=== PATIENT | female | born 1990 | race Caucasian/White ===

== ENCOUNTER 2016-12-20 08:24 | Emergency (ER) | payer SELFPAY ==
[2016-12-20] MEDS ORDERED: ACETAMINOPHEN 325 MG TABLET PO ONE (08:47)
[2016-12-20] MEDS ORDERED: KETOROLAC TROMETHAMINE 60 MG/2 ML SDV IM ONE (09:34)
--- NOTE | 2016-12-20 10:12 | ER Document Report ---
ED General - General Chief Complaint: Fever Stated Complaint: FEVER Mode of Arrival: Ambulatory Information source: Patient Notes: 26-year-old female presenting for the duration of body aches fevers cough sinus pressure. Patient denies any shortness of breath or difficulty breathing was sick 2 days prior TRAVEL OUTSIDE OF THE [place] IN LAST 30 DAYS: No - HPI Onset: Last week Onset/Duration: Persistent Quality of pain: Achy Severity: Mild Pain Level: 1 Associated symptoms: Body/muscle aches, Nonproductive cough, Fever Exacerbated by: Denies Relieved by: Denies Similar symptoms previously: No Recently seen / treated by doctor: No - Related Data Allergies/Adverse Reactions: acetaminophen [From Tylenol] Adverse Reaction (Verified 12/20/16 09:13) Home Medications: Current Home Medications No Home Medications 12/20/16 [History] Past Medical History - Social History Smoking Status: Never Smoker Cigarette use (# per day): No Chew tobacco use (# tins/day): No Smoking Education Provided: No Frequency of alcohol use: None Drug Abuse: None Family History: Reviewed & Not Pertinent Patient has suicidal ideation: No Patient has homicidal ideation: No Renal/ Medical History: Denies: Hx Peritoneal Dialysis GI Medical History: Reports: Hx Gastroesophageal Reflux Disease Past Surgical History: Reports: Hx Section - Immunizations Hx Diphtheria, Pertussis, Tetanus Vaccination: Yes Review of Systems - Review of Systems Notes: REVIEW OF SYSTEMS: CONSTITUTIONAL : Admits fevers EENT: Admits her throat CARDIOVASCULAR: Denies chest pain. Denies palpitations or racing or irregular heart beat. Denies ankle edema. RESPIRATORY: Admits cough GASTROINTESTINAL: Denies abdominal pain or distention. Denies nausea, vomiting , or diarrhea. Denies blood in vomitus, stools, or per rectum. Denies black, tarry stools. Denies constipation. GENITOURINARY: Denies difficulty urinating, painful urination, burning, frequency, blood in urine, or discharge. FEMALE GENITOURINARY: Denies vaginal bleeding, heavy or abnormal periods, irregular periods. Denies vaginal discharge or odor. MUSCULOSKELETAL: Denies body ache SKIN: Denies rash, lesions or sores. HEMATOLOGIC : Denies easy bruising or bleeding. LYMPHATIC: Denies swollen, enlarged glands. NEUROLOGICAL: Denies confusion or altered mental status. Denies passing out or loss of consciousness. Denies dizziness or lightheadedness. Denies headache. Denies weakness or paralysis or loss of use of either side. Denies problems with gait or speech. Denies sensory loss, numbness, or tingling. Denies seizures. PSYCHIATRIC: Denies anxiety or stress. Denies depression, suicidal ideation, or homicidal ideation. ALL OTHER SYSTEMS REVIEWED AND NEGATIVE. Dictation was performed using [employer] voice recognition software PHYSICAL EXAMINATION: GENERAL: Well-appearing, well-nourished and in no acute distress. Febrile HEAD: Atraumatic, normocephalic. EYES: Pupils equal round and reactive to light, extraocular movements intact, conjunctiva are normal. ENT: Nares patent, oropharynx clear without exudates. Moist mucous membranes. NECK: Normal range of motion, supple without lymphadenopathy LUNGS: Breath sounds clear to auscultation bilaterally and equal. No wheezes rales or rhonchi. HEART: Tachycardic ABDOMEN: Soft, nontender, nondistended abdomen. No guarding, no rebound. No masses appreciated. Female : deferred Musculoskeletal: Normal range of motion, no pitting or edema. No cyanosis. NEUROLOGICAL: Cranial nerves grossly intact. Normal speech, normal gait. Normal sensory, motor exams PSYCH: Normal mood, normal affect. SKIN: Warm, Dry, normal turgor, no rashes or lesions noted. Physical Exam - Vital signs Vitals: Temp Pulse Resp BP Pulse Ox 101.3 F H 132 H 18 109/67 96 12/20/16 08:32 12/20/16 08:32 12/20/16 08:32 12/20/16 08:32 12/20/16 08:32 Course - Re-evaluation Re-evalutation: 12/20/16 10:33 Patient has had the flu for 4 days, unfortunately she is out of the timeframe for the use of Tamiflu, I did offer this medication but the patient defers. I did instruct him very close follow-up for herself as well as her 3 children After performing a Medical Screening Examination, I estimate there is LOW risk for ACUTE CORONARY SYNDROME, RESPIRATORY FAILURE, SEPSIS OR MENINGITIS, thus I consider the discharge disposition reasonable. The patient and I have discussed the diagnosis and risks, and we agree with discharging home with close follow- up. We also discussed returning to the Emergency Department immediately if new or worsening symptoms occur. We have discussed the symptoms which are most concerning (e.g., changing or worsening pain, trouble swallowing or breathing, neck stiffness, fever) that necessitate immediate return. - Vital Signs Vital signs: Temp Pulse Resp BP Pulse Ox 98.4 F 126 H 16 106/66 96 12/20/16 09:34 12/20/16 09:34 12/20/16 09:34 12/20/16 09:34 12/20/16 09:34 - Diagnostic Test Radiology reviewed: Image reviewed, Reports reviewed Discharge - Discharge Clinical Impression: Influenza A, Tachycardia Fever Qualifiers: Fever type: unspecified Qualified Code(s): R50.9 - Fever, unspecified Condition: Stable Disposition: HOME, SELF-CARE Instructions: Influenza, Child ([facility]) Additional Instructions: Please follow up with your pcp in 1-2 days or return immediately if there are any other concerns
[2016-12-20 10:36] VITALS: BP 103/60
== END 2016-12-20 10:39 | disposition home or self-care (01) ==
LOC: ER 08:24
DX: J11.1 Influenza due to unidentified influenza virus with other respiratory manifestations (principal); R05 Cough; R50.9 Fever, unspecified; J34.89 Other specified disorders of nose and nasal sinuses; M79.1 Myalgia; R00.0 Tachycardia, unspecified
CPT/HCPCS: 99283; 96372; 87070; 87880; 87804; 71020; J1885

== ENCOUNTER 2017-03-01 22:13 | Emergency (ER) | payer OTHER, MEDICAID | END 2017-03-01 22:45 | disposition left against medical advice (07) | LOC: ER 22:13 | DX: Z53.21 Procedure and treatment not carried out due to patient leaving prior to being seen by health care provider (principal) ==

== ENCOUNTER 2017-03-02 07:57 | Emergency (ER) | payer MEDICAID, OTHER ==
[2017-03-02] MEDS ORDERED: LIDOCAINE 2% VISCOUS SOLN 20 ML UDCUP PO ONE (09:28)
[2017-03-02] MEDS ORDERED: METOCLOPRAMIDE HCL ORAL SOLN 10 MG/10 ML UDCUP PO ONE (09:28)
[2017-03-02] MEDS ORDERED: MAG HYDROX/AL HYDROX/SIMETH SUSP 30 ML UDCUP PO ONE (09:28)
[2017-03-02 10:04] LABS: ABSOLUTE LYMPHOCYTES (AUTO) 2.3 10^3/uL (0.5-4.7); ABSOLUTE MONOCYTES (AUTO) 0.7 10^3/uL (0.1-1.4); ABSOLUTE NEUT (AUTO) 5.6 10^3/uL (1.7-8.2); BASOPHILS % (AUTO) 0.4 % (0-2); EOSINOPHILS % (AUTO) 0.3 % (0-6); HEMATOCRIT 38.8 % (36.0-47.0); HEMOGLOBIN 13.2 g/dL (12.0-15.5); HGB HCT DIFFERENCE 0.8; LYMPHOCYTES % (AUTO) 26.7 % (13-45); MEAN CORPUSCULAR HEMOGLOBIN 25.7 pg (27.0-33.4); MEAN CORPUSCULAR VOLUME 76 fl (80-97); MONOCYTES % (AUTO) 7.9 % (3-13); RED BLOOD COUNT 5.13 10^6/uL (3.72-5.28); RED CELL DISTRIBUTION WIDTH 15.4 % (11.5-14.0); SEGMENTED NEUTROPHILS % (AUTO) 64.7 % (42-78); WHITE BLOOD COUNT 8.7 10^3/uL (4.0-10.5)
--- NOTE | 2017-03-02 10:24 | ER Document Report ---
ED General - General Chief Complaint: Nausea/Vomiting/Diarrhea Stated Complaint: VOMITING Mode of Arrival: Ambulatory Information source: Patient Notes: 26-year-old female presents with complaints of epigastric abdominal pain. Patient notes has been ongoing now for a few days notes is intermittently sharp associated with dull sensation otherwise. Patient denies any fevers or chills admits to nausea that these are mild and vomiting Patient had similar episode in the past which was secondary to gastric reflux TRAVEL OUTSIDE OF THE [place] IN LAST 30 DAYS: No - HPI Onset: Last week Onset/Duration: Intermittent, Persistent Quality of pain: Achy, Burning, Sharp Severity: Mild Pain Level: 1 Associated symptoms: Nausea, Vomiting Exacerbated by: Denies Relieved by: Denies Similar symptoms previously: Yes Recently seen / treated by doctor: No - Related Data Allergies/Adverse Reactions: No Known Allergies Allergy (Unverified 03/02/17 08:15) Past Medical History - Social History Smoking Status: Never Smoker Cigarette use (# per day): No Chew tobacco use (# tins/day): No Smoking Education Provided: No Family History: Reviewed & Not Pertinent Patient has suicidal ideation: No Patient has homicidal ideation: No Renal/ Medical History: Denies: Hx Peritoneal Dialysis GI Medical History: Reports: Hx Gastroesophageal Reflux Disease Past Surgical History: Reports: Hx Section - Immunizations Hx Diphtheria, Pertussis, Tetanus Vaccination: Yes Review of Systems - Review of Systems Notes: REVIEW OF SYSTEMS: CONSTITUTIONAL : Denies fever, chills, or sweats. Denies recent illness. EENT: Denies eye, ear, throat, or mouth pain or symptoms. Denies nasal or sinus congestion or discharge. Denies throat, tongue, or mouth swelling or difficulty swallowing. CARDIOVASCULAR: Denies chest pain. Denies palpitations or racing or irregular heart beat. Denies ankle edema. RESPIRATORY: Denies cough, cold, or chest congestion. Denies shortness of breath, difficulty breathing, or wheezing. GASTROINTESTINAL: Admits to abdominal pain GENITOURINARY: Denies difficulty urinating, painful urination, burning, frequency, blood in urine, or discharge. FEMALE GENITOURINARY: Denies vaginal bleeding, heavy or abnormal periods, irregular periods. Denies vaginal discharge or odor. MUSCULOSKELETAL: Denies back or neck pain or stiffness. Denies joint pain or swelling. SKIN: Denies rash, lesions or sores. HEMATOLOGIC : Denies easy bruising or bleeding. LYMPHATIC: Denies swollen, enlarged glands. NEUROLOGICAL: Denies confusion or altered mental status. Denies passing out or loss of consciousness. Denies dizziness or lightheadedness. Denies headache. Denies weakness or paralysis or loss of use of either side. Denies problems with gait or speech. Denies sensory loss, numbness, or tingling. Denies seizures. PSYCHIATRIC: Denies anxiety or stress. Denies depression, suicidal ideation, or homicidal ideation. ALL OTHER SYSTEMS REVIEWED AND NEGATIVE. Dictation was performed using [employer] recognition software PHYSICAL EXAMINATION: GENERAL: Well-appearing, well-nourished and in no acute distress. HEAD: Atraumatic, normocephalic. EYES: Pupils equal round and reactive to light, extraocular movements intact, conjunctiva are normal. ENT: Nares patent, oropharynx clear without exudates. Moist mucous membranes. NECK: Normal range of motion, supple without lymphadenopathy LUNGS: Breath sounds clear to auscultation bilaterally and equal. No wheezes rales or rhonchi. HEART: Regular rate and rhythm without murmurs ABDOMEN: Soft, mild epigastric tenderness no rebound or guarding Female : deferred Musculoskeletal: Normal range of motion, no pitting or edema. No cyanosis. NEUROLOGICAL: Cranial nerves grossly intact. Normal speech, normal gait. Normal sensory, motor exams PSYCH: Normal mood, normal affect. SKIN: Warm, Dry, normal turgor, no rashes or lesions noted. Physical Exam - Vital signs Vitals: Temp Pulse Resp BP Pulse Ox 98.3 F 109 H 20 127/97 H 97 03/02/17 08:15 03/02/17 08:15 03/02/17 08:15 03/02/17 08:15 03/02/17 08:15 Course - Re-evaluation Re-evalutation: 03/02/17 10:10 Patient has probable gastric reflux, and is otherwise stable 03/02/17 12:41 Patient has significant relief with the GI cocktail, I will discharge home with Pepcid otherwise stable After performing a Medical Screening Examination, I estimate there is LOW risk for ACUTE APPENDICITIS, BOWEL OBSTRUCTION, ACUTE CHOLECYSTITIS, PERFORATED DIVERTICULITIS, INCARCERATED HERNIA, PANCREATITIS, PELVIC INFLAMMATORY DISEASE, PERFORATED ULCER, ECTOPIC , or TUBO-OVARIAN ABSCESS, thus I consider the discharge disposition reasonable. Also, there is no evidence or peritonitis , sepsis, or toxicity. The patient and I have discussed the diagnosis and risks , and we agree with discharging home with close follow-up with the understanding that symptoms and presentations can change. We also discussed returning to the Emergency Department immediately if new or worsening symptoms occur. We have discussed the symptoms which are most concerning (e.g., bloody stool, fever, changing or worsening pain, vomiting) that necessitate immediate return. - Vital Signs Vital signs: Temp Pulse Resp BP Pulse Ox 98.3 F 114 H 20 127/87 H 96 03/02/17 08:15 03/02/17 08:15 03/02/17 08:15 03/02/17 08:15 03/02/17 08:15 - Laboratory Result Diagrams: 03/02/17 09:50 03/02/17 10:50 Laboratory results interpreted by me: 03/02/17 03/02/17 09:50 11:45 MCV 76 L MCH 25.7 L RDW 15.4 H Urine Ketones TRACE H Discharge - Discharge Clinical Impression: GERD (gastroesophageal reflux disease) Qualifiers: Esophagitis presence: with esophagitis Qualified Code(s): K21.0 - Gastro- esophageal reflux disease with esophagitis Abdominal pain Qualifiers: Abdominal location: epigastric Qualified Code(s): R10.13 - Epigastric pain Condition: Stable Disposition: HOME, SELF-CARE Instructions: Abdominal Pain ([facility]) Prescriptions: Famotidine [Pepcid 20 mg Tablet] 20 mg PO DAILY #30 tablet Referrals: MASSIEL HASSAN MD [ACTIVE STAFF] - Follow up tomorrow
[2017-03-02 11:13] LABS: ALANINE AMINOTRANSFERASE 37 U/L (9-52); ALBUMIN 4.3 g/dL (3.5-5.0); ALKALINE PHOSPHATASE 82 U/L (38-126); ANION GAP 15 (5-19); ASPARTATE AMINO TRANSFERASE 24 U/L (14-36); BILIRUBIN,DIRECT 0.2 mg/dL (0.0-0.4); BILIRUBIN,TOTAL 0.6 mg/dL (0.2-1.3); BLOOD UREA NITROGEN 7 mg/dL (7-20); CALCIUM 9.5 mg/dL (8.4-10.2); CARBON DIOXIDE 24 mmol/L (22-30); CHLORIDE 103 mmol/L (98-107); CREATININE RESULT 0.72 mg/dL (0.52-1.25); GLUCOSE 108 mg/dL (75-110); LIPASE 52.7 U/L (23-300); POTASSIUM 3.9 mmol/L (3.6-5.0); SODIUM 142.3 mmol/L (137-145); TOTAL PROTEIN 7.7 g/dL (6.3-8.2)
[2017-03-02 12:22] LABS: AMORPHOUS SEDIMENT,URINE 1+ /HPF; APPEARANCE,URINE TURBID; BILIRUBIN,URINE NEGATIVE (NEGATIVE); GLUCOSE, URINE NEGATIVE (NEGATIVE); KETONES,URINE TRACE mg/dL (NEGATIVE); LEUKOCYTE ESTERASE,URINE NEGATIVE (NEGATIVE); NITRITE,URINE NEGATIVE (NEGATIVE); PROTEIN,URINE NEGATIVE (NEGATIVE); URINE SPECIFIC GRAVITY 1.025; UROBILINOGEN,URINE NEGATIVE mg/dL (<2.0)
[2017-03-02 13:22] VITALS: BP 119/72
--- NOTE | 2017-03-02 15:38 | EKG REPORT ---
SEVERITY:- NORMAL ECG - SINUS RHYTHM : Confirmed by: Agnes Dickinson MD 02-Mar-2017 15:37:11
== END 2017-03-02 13:22 | disposition home or self-care (01) ==
LOC: ER 07:57
DX: K21.0 Gastro-esophageal reflux disease with esophagitis (principal); R10.13 Epigastric pain; R11.2 Nausea with vomiting, unspecified
CPT/HCPCS: 93005; 99284; 36415; 83690; 85025; 81025; 80053; 81001; 87804; 93010; J3490 ×3

== ENCOUNTER 2017-04-02 21:31 | Emergency (ER) | payer SELFPAY ==
[2017-04-02 22:46] VITALS: BP 111/75
[2017-04-02] MEDS ORDERED: BENZONATATE 100 MG CAPSULE PO ONE (22:57)
--- NOTE | 2017-04-02 22:59 | ER Document Report ---
ED General - General Chief Complaint: Nonproductive Cough Stated Complaint: COUGH Notes: Patient is a 26-year-old female without past medical history who presents with 2 days of a nonproductive cough. States that sometimes the cough becomes so intense that she feels that she might vomit. She has not had any vomiting or diarrhea. No fever. She has not tried anything to improve her symptoms. Nothing has been noted to worsen her symptoms. Notes that she has had similar symptoms in the past. She has not seen her primary care doctor regarding these concerns. Symptoms have been unchanged since onset. Multiple sick contacts with similar symptoms. TRAVEL OUTSIDE OF THE [place] IN LAST 30 DAYS: No - Related Data Allergies/Adverse Reactions: No Known Allergies Allergy (Verified 04/02/17 21:37) Past Medical History - General Information source: Patient - Social History Smoking Status: Never Smoker Frequency of alcohol use: None Drug Abuse: None Lives with: Spouse/Significant other Family History: Reviewed & Not Pertinent Patient has suicidal ideation: No Patient has homicidal ideation: No Renal/ Medical History: Denies: Hx Peritoneal Dialysis GI Medical History: Reports: Hx Gastroesophageal Reflux Disease Past Surgical History: Reports: Hx Section - Immunizations Hx Diphtheria, Pertussis, Tetanus Vaccination: Yes Review of Systems - Review of Systems Notes: Constitutional: Negative for fever. HENT: Negative for sore throat. Positive for nasal congestion Eyes: Negative for visual changes. Cardiovascular: Negative for chest pain. Respiratory: Negative for shortness of breath. Positive for cough Gastrointestinal: Negative for abdominal pain, vomiting or diarrhea. Genitourinary: Negative for dysuria. Musculoskeletal: Negative for back pain. Skin: Negative for rash. Neurological: Negative for headaches, weakness or numbness. 10 point ROS negative except as marked above and in HPI. Physical Exam - Vital signs Vitals: Temp Pulse Resp BP Pulse Ox 98.8 F 131 H 20 123/80 96 04/02/17 21:34 04/02/17 21:34 04/02/17 21:34 04/02/17 21:34 04/02/17 21:34 Interpretation: Tachycardic Notes: PHYSICAL EXAMINATION: GENERAL: Well-appearing, well-nourished and in no acute distress. HEAD: Atraumatic, normocephalic. EYES: Pupils equal round and reactive to light, extraocular movements intact, sclera anicteric, conjunctiva are normal. ENT: nares patent, oropharynx clear without exudates. Moist mucous membranes. NECK: Normal range of motion, supple without lymphadenopathy LUNGS: Breath sounds clear to auscultation bilaterally and equal. No wheezes rales or rhonchi. HEART: Regular tachycardia without murmurs ABDOMEN: Soft, nontender, normoactive bowel sounds. No guarding, no rebound. No masses appreciated. EXTREMITIES: Normal range of motion, no pitting or edema. No cyanosis. NEUROLOGICAL: No focal neurological deficits. Moves all extremities spontaneously and on command. PSYCH: Normal mood, normal affect. SKIN: Warm, Dry, normal turgor, no rashes or lesions noted. Course - Re-evaluation Re-evalutation: 04/02/17 22:58 Presentation is most consistent with a viral upper respiratory infection. Patient is overall well appearance, vitals within normal limits with the exception of patient's baseline tachycardia, well-hydrated. Patient denies any headache, neck pain, and has no evidence of meningismus on examination. Lungs are clear bilaterally. No evidence of respiratory distress. Based on clinical exam and history, I do not suspect an acute pneumonia, meningitis, strep pharyngitis, or an acute encephalitis. Chest x-ray clear. Regarding patient's baseline tachycardia: She has never had a workup for her persistent tachycardia which has been present on each visit that she has had this emergency department over the past several years. I have referred her to our e business manager for outpatient workup and management. - Vital Signs Vital signs: Temp Pulse Resp BP Pulse Ox 98.0 F 117 H 18 111/75 99 04/02/17 22:45 04/02/17 22:45 04/02/17 22:45 04/02/17 22:45 04/02/17 22:45 - Diagnostic Test Radiology reviewed: Image reviewed, Reports reviewed Radiology results interpreted by me: 04/02/17 22:59 Chest x-ray: No acute infiltrate Discharge - Discharge Clinical Impression: Cough, Sinus tachycardia Upper respiratory infection Qualifiers: URI type: unspecified URI Qualified Code(s): J06.9 - Acute upper respiratory infection, unspecified Condition: Good Disposition: HOME, SELF-CARE Instructions: Sinus Tachycardia ([facility]) Additional Instructions: Your symptoms are most likely due to a viral infection it should resolve over the next 7-14 days. You should take [id number] guanfacine per bottle instructions to help thin the mucus. For nasal congestion: I would recommend that you get [id number]-[id number] oxymetazoline also known is afrin. Use only per bottle instructions and be sure to never use this for more than 3 days if you can develop severe rebound congestion. You may also use tylenol or ibuprofen as needed for aches and thorat discomfort. Please be sure to drink plenty of fluids and get rest. Return to the emergency department he began having difficulty breathing, chest pain, persistent vomiting, or any other symptoms that are concerning to you. Your heart rate is also consistently high. I would like you to see our local e business manager for workup of this persistent tachycardia you will likely be placed on medications to help regulate your heart rate. Prescriptions: Benzonatate [Tessalon Perles 100 mg Capsule] 100 mg PO Q8HP PRN #40 capsule PRN Reason: Forms: Return to Work Referrals: DURAN BOO MD [ACTIVE STAFF] - Follow up as needed
== END 2017-04-02 23:30 | disposition home or self-care (01) ==
LOC: ER 21:31
DX: J06.9 Acute upper respiratory infection, unspecified (principal); R05 Cough; R09.81 Nasal congestion; R00.0 Tachycardia, unspecified
CPT/HCPCS: 71020; 99283

== ENCOUNTER 2017-10-10 22:19 | Emergency (ER) | payer SELFPAY ==
[2017-10-10] MEDS ORDERED: LIDOCAINE 2% VISCOUS SOLN 20 ML UDCUP PO ONE (23:02)
[2017-10-10] MEDS ORDERED: MAG HYDROX/AL HYDROX/SIMETH SUSP 30 ML UDCUP PO ONE (23:02)
[2017-10-10] MEDS ORDERED: METOCLOPRAMIDE HCL ORAL SOLN 10 MG/10 ML UDCUP PO ONE (23:02)
--- NOTE | 2017-10-10 23:07 | ER Document Report ---
ED Cardiac - General Chief Complaint: Chest Pain Stated Complaint: CHEST PAIN Time Seen by Provider: 10/10/17 22:53 Mode of Arrival: Ambulatory Information source: Patient TRAVEL OUTSIDE OF THE [place] IN LAST 30 DAYS: No - HPI Patient complains to provider of: Chest pain Notes: 27-year-old female with history of GERD presents with chest pain starting earlier today. She does not remember the exact onset but it was mild and has become more significant. She has had similar problems in the past requiring to come here and states a GI cocktail helped. She does not really have any shortness of breath but states there is a pressure type discomfort that has intermittent sharp component as well without radiation. It is worse when she is coughing as well as when she is lying flat. Cough started yesterday and is dry. There is no hemoptysis, calf pain or leg swelling. No pleuritic component and it is not radiating. It is worse if she lies flat. She has had no sedimentation or trauma recently. Denies any hormonal therapy or prior VTE. Denies prior cardiac issues in the past. She does state she most of time is tachycardic which is not unusual for her. - Related Data Allergies/Adverse Reactions: No Known Allergies Allergy (Verified 04/02/17 21:37) Past Medical History - Social History Smoking Status: Never Smoker Family History: Reviewed & Not Pertinent, Other - Denies history of thromboembolic disorders. Renal/ Medical History: Denies: Hx Peritoneal Dialysis GI Medical History: Reports: Hx Gastroesophageal Reflux Disease Past Surgical History: Reports: Hx Section - Immunizations Hx Diphtheria, Pertussis, Tetanus Vaccination: Yes Review of Systems - Review of Systems -: Yes All other systems reviewed and negative Physical Exam - Vital signs Vitals: Temp Pulse Resp BP Pulse Ox 98.5 F 122 H 16 125/82 98 10/10/17 22:22 10/10/17 22:22 10/10/17 22:22 10/10/17 22:22 10/10/17 22:22 - Notes Notes: Physical Exam: GENERAL: VS as per nursing doc. Well-appearing, well-nourished and in no acute distress. HEAD: Atraumatic, normocephalic. EYES: Pupils equal round and reactive to light, extraocular movements intact, sclera anicteric, no conjunctival injection or discharge. ENT: Nares patent, oropharynx clear without exudates. Moist mucous membranes. NECK: Normal range of motion, supple without lymphadenopathy. No JVD. No Carotid Bruits. LUNGS: Breath sounds clear to auscultation bilaterally and equal though slightly course. No wheezes rales or rhonchi. Chest shows some lower sternal tenderness where her pain is but this is not completely reproducible. HEART: Normal S1S2. Regular rhythm without murmurs. Tachycardic with a rate 108 on examination. Equal peripheral pulses. ABDOMEN: Soft, non-tender but states does feel the pressure in the subxiphoid region. No pulsatile mass. EXTREMITIES: Normal range of motion. No calf tenderness. Negative Homans. No edema. NEUROLOGICAL: Cranial nerves grossly intact. Normal speech. Normal sensory and motor exams. No gross cerebellar abnormalities. PSYCH: Normal mood, normal affect. SKIN: Warm, dry, no cyanosis, no splinter hemorrhages. Cap refill < 2 sec. Course - Re-evaluation Re-evalutation: 10/11/17 00:26 Clinically this seem more inflammatory by history and physical. She did report the GI cocktail seemed to help so she will use Maalox or Mylanta at home as well and on a PPI. She does have a new cough I suspect she has a resolved URI and with her coarse breath sounds probably some component of bronchitis. Heart rate resolved to upper 90s. Discussed with her findings and she does not want any further evaluation at this point. I see no clinical signs of pericarditis. She understands warning signs to watch for and will return if worsening, or for other concern. - Vital Signs Vital signs: Temp Pulse Resp BP Pulse Ox 98.5 F 122 H 16 125/82 98 10/10/17 22:22 10/10/17 22:22 10/10/17 22:22 10/10/17 22:22 10/10/17 22:22 - Laboratory Result Diagrams: 10/10/17 23:40 10/10/17 23:40 Laboratory results interpreted by me: 10/10/17 10/10/17 23:40 23:40 MCV 75 L MCH 25.0 L RDW 14.8 H Sodium 147.1 H - Diagnostic Test Radiology reviewed: Image reviewed, Reports reviewed - NAD - EKG Interpretation by Me Rate: Tachycardia Additional EKG results interpreted by me: 10/10/17 23:06 Heart rate 106, sinus tachycardia, normal QRS duration. Some artifact is noted but there is no clear [place] depression or ST elevation. Discharge - Discharge Clinical Impression: Chest pain in adult Condition: Good Disposition: HOME, SELF-CARE Instructions: Chest Pain of Unclear Cause ([facility]), Oral Narcotic Medication ([facility]) , Prilosec (Acid Pump Inhibitor) ([facility]) Additional Instructions: Return for worsening or concern. Add on the Prilosec as discussed. Stay well hydrated. Consider [id number] cough medications such as generic Mucinex DM or similar. May use Maalox or Mylanta as well for the discomfort as that seemed to help here. Prescriptions: Acetaminophen with Codeine [Tylenol #3 Tablet] 1 - 2 each PO Q6HP PRN #10 tablet PRN Reason: For Pain
--- NOTE | 2017-10-10 23:26 | RADIOLOGY REPORT (SQ) ---
EXAM DESCRIPTION: CHEST PA/LAT COMPLETED DATE/TIME: 10/10/2017 11:12 pm REASON FOR STUDY: CP COMPARISON: 04/02/2017 EXAM PARAMETERS: NUMBER OF VIEWS: two views TECHNIQUE: Digital Frontal and Lateral radiographic views of the chest acquired. RADIATION DOSE: NA LIMITATIONS: none FINDINGS: LUNGS AND PLEURA: No opacities, masses or pneumothorax. No pleural effusion. MEDIASTINUM AND HILAR STRUCTURES: No masses or contour abnormalities. HEART AND VASCULAR STRUCTURES: Heart normal size. No evidence for failure. BONES: No acute findings. HARDWARE: None in the chest. OTHER: No other significant finding. IMPRESSION: NO SIGNIFICANT RADIOGRAPHIC FINDING IN THE CHEST. TECHNICAL DOCUMENTATION: JOB ID: [id number] [employer] All Rights Reserved
[2017-10-10 23:55] LABS: ABSOLUTE LYMPHOCYTES (AUTO) 3.1 10^3/uL (0.5-4.7); ABSOLUTE MONOCYTES (AUTO) 0.8 10^3/uL (0.1-1.4); BASOPHILS % (AUTO) 0.5 % (0-2); EOSINOPHILS % (AUTO) 0.1 % (0-6); HEMATOCRIT 37.7 % (36.0-47.0); HEMOGLOBIN 12.6 g/dL (12.0-15.5); HGB HCT DIFFERENCE 0.1; LYMPHOCYTES % (AUTO) 31.2 % (13-45); MEAN CORPUSCULAR HGB CONC 33.4 g/dL (32.0-36.0); MEAN CORPUSCULAR VOLUME 75 fl (80-97); MONOCYTES % (AUTO) 7.6 % (3-13); RED BLOOD COUNT 5.05 10^6/uL (3.72-5.28); RED CELL DISTRIBUTION WIDTH 14.8 % (11.5-14.0); SEGMENTED NEUTROPHILS % (AUTO) 60.6 % (42-78); WHITE BLOOD COUNT 9.8 10^3/uL (4.0-10.5)
[2017-10-11 00:09] LABS: ANION GAP 15 (5-19); BLOOD UREA NITROGEN 10 mg/dL (7-20); CALCIUM 9.8 mg/dL (8.4-10.2); CARBON DIOXIDE 27 mmol/L (22-30); CHLORIDE 105 mmol/L (98-107); CREATININE RESULT 0.74 mg/dL (0.52-1.25); GLUCOSE 89 mg/dL (75-110); POTASSIUM 3.8 mmol/L (3.6-5.0); SODIUM 147.1 mmol/L (137-145)
[2017-10-11 00:47] VITALS: BP 106/74
--- NOTE | 2017-10-11 09:34 | EKG REPORT ---
SEVERITY:- OTHERWISE NORMAL ECG - SINUS TACHYCARDIA : Confirmed by: Gosia Joseph 11-Oct-2017 09:34:05
== END 2017-10-11 00:47 | disposition home or self-care (01) ==
LOC: ER 22:19
DX: R07.9 Chest pain, unspecified (principal); K21.9 Gastro-esophageal reflux disease without esophagitis
CPT/HCPCS: 93005; 99285; 36415; 84703; 85025; 80048; 84484; 85379; 71020; 93010; J3490

== ENCOUNTER 2017-10-26 18:20 | Emergency (ER) | payer SELFPAY ==
[2017-10-26 18:28] VITALS: BP 120/80
--- NOTE | 2017-10-26 18:53 | ER Document Report ---
ED Medical Screen (RME) - General Chief Complaint: Abdominal Pain Stated Complaint: ABDOMINAL PAIN,NAUSEA,VOMITING Time Seen by Provider: 10/26/17 18:41 Mode of Arrival: Ambulatory Information source: Patient TRAVEL OUTSIDE OF THE [place] IN LAST 30 DAYS: No - HPI Onset: Other - 3 DAYS Onset/Duration: Gradual, Constant Quality of pain: Dull - MOSTLY, Sharp - W/ MOVEMENT Severity: Moderate Associated Symptoms: Abdominal pain, Diarrhea, Nausea, Vomiting Exacerbated by: Denies Relieved by: Denies Similar symptoms previously: No Recently seen / treated by doctor: No - Related Data Allergies/Adverse Reactions: No Known Allergies Allergy (Verified 10/26/17 18:24) Past Medical History - General Information source: Patient - Social History Chew tobacco use (# tins/day): No Frequency of alcohol use: None Drug Abuse: None Lives with: Spouse/Significant other Renal/ Medical History: Denies: Hx Peritoneal Dialysis GI Medical History: Reports: Hx Gastroesophageal Reflux Disease Psychiatric Medical History: Reports: None Past Surgical History: Reports: Hx Section - Immunizations Hx Diphtheria, Pertussis, Tetanus Vaccination: Yes Review of Systems - Review of Systems Constitutional: denies: Chills, Fever EENT: No symptoms reported Cardiovascular: No symptoms reported Respiratory: No symptoms reported Gastrointestinal: See HPI Genitourinary: See HPI Female Genitourinary: denies: Physical Exam - Vital signs Vitals: Temp Pulse Resp BP Pulse Ox 98.6 F 108 H 19 120/80 97 10/26/17 18:27 10/26/17 18:27 10/26/17 18:27 10/26/17 18:27 10/26/17 18:27 Interpretation: Tachycardic. No: Tachypneic, Febrile - General General appearance: Appears well, Alert In distress: None - HEENT Head: Normocephalic Eyes: Normal Conjunctiva: Normal Ears: Normal Nasal: Normal Mouth/Lips: Normal Mucous membranes: Normal - Respiratory Respiratory status: No respiratory distress - Cardiovascular Rhythm: Regular - Abdominal Inspection: Obese Course - Vital Signs Vital signs: Temp Pulse Resp BP Pulse Ox 98.6 F 108 H 19 120/80 97 10/26/17 18:27 10/26/17 18:27 10/26/17 18:27 10/26/17 18:27 10/26/17 18:27
[2017-10-26 19:37] LABS: APPEARANCE,URINE CLEAR; BILIRUBIN,URINE NEGATIVE (NEGATIVE); GLUCOSE, URINE NEGATIVE (NEGATIVE); KETONES,URINE NEGATIVE (NEGATIVE); LEUKOCYTE ESTERASE,URINE TRACE (NEGATIVE); NITRITE,URINE NEGATIVE (NEGATIVE); PROTEIN,URINE NEGATIVE (NEGATIVE); URINE SPECIFIC GRAVITY 1.013; UROBILINOGEN,URINE NEGATIVE mg/dL (<2.0)
[2017-10-26] MEDS ORDERED: NORMAL SALINE 1000 ML 1,000 ML IV ONE (19:55)
[2017-10-26] MEDS ORDERED: MORPHINE SULFATE 10 MG/ML INJ IV PRN (19:55)
[2017-10-26] MEDS ORDERED: ONDANSETRON HCL INJ/PF 4 MG/2 ML SDV IV ONE (19:55)
--- NOTE | 2017-10-26 19:56 | ER Document Report ---
ED General - General Chief Complaint: Abdominal Pain Stated Complaint: ABDOMINAL PAIN,NAUSEA,VOMITING Time Seen by Provider: 10/26/17 18:41 Mode of Arrival: Ambulatory Notes: Patient is a 27-year-old female without past medical history, prior surgical history of a , LMP 2 weeks ago, who presents with 3 days of progressively worsening abdominal pain. Patient states that 3 days ago she developed a generalized abdominal pain that has become more localized to her right lower quadrant over the past 3 days. She states that today she became concerned as the pain became more persistent and more severe. She notes that the pain is worsened by sitting down in a chair to abruptly, walking down steps , or driving her car and hitting bumps in the road. She does describe it as a constant, stabbing, throbbing pain. Nothing improves the pain. She has had associated vomiting and loose stools. She denies any history of similar symptoms in the past. She has not seen her primary doctor regarding today's concerns. She denies any dysuria, vaginal bleeding or vaginal discharge. She has not had fever. TRAVEL OUTSIDE OF THE [place] IN LAST 30 DAYS: No - Related Data Allergies/Adverse Reactions: No Known Allergies Allergy (Verified 10/26/17 18:24) Past Medical History - General Information source: Patient - Social History Smoking Status: Never Smoker Chew tobacco use (# tins/day): No Frequency of alcohol use: None Drug Abuse: None Lives with: Spouse/Significant other Family History: Reviewed & Not Pertinent, Other - Denies history of thromboembolic disorders. Patient has suicidal ideation: No Patient has homicidal ideation: No Renal/ Medical History: Denies: Hx Peritoneal Dialysis GI Medical History: Reports: Hx Gastroesophageal Reflux Disease Psychiatric Medical History: Reports: None Past Surgical History: Reports: Hx Section - Immunizations Hx Diphtheria, Pertussis, Tetanus Vaccination: Yes Review of Systems - Review of Systems Notes: Constitutional: Negative for fever. HENT: Negative for sore throat. Eyes: Negative for visual changes. Cardiovascular: Negative for chest pain. Respiratory: Negative for shortness of breath. Gastrointestinal: Positive for abdominal pain and vomiting Genitourinary: Negative for dysuria. Musculoskeletal: Negative for back pain. Skin: Negative for rash. Neurological: Negative for headaches, weakness or numbness. 10 point ROS negative except as marked above and in HPI. Physical Exam - Vital signs Vitals: Temp Pulse Resp BP Pulse Ox 98.6 F 108 H 19 120/80 97 10/26/17 18:27 10/26/17 18:27 10/26/17 18:27 10/26/17 18:27 10/26/17 18:27 Interpretation: Tachycardic Notes: PHYSICAL EXAMINATION: GENERAL: Well-appearing, well-nourished and in no acute distress. HEAD: Atraumatic, normocephalic. EYES: Pupils equal round and reactive to light, extraocular movements intact, sclera anicteric, conjunctiva are normal. ENT: nares patent, oropharynx clear without exudates. Moderately dry mucous membranes. NECK: Normal range of motion, supple without lymphadenopathy LUNGS: Breath sounds clear to auscultation bilaterally and equal. No wheezes rales or rhonchi. HEART: Regular tachycardia without murmurs ABDOMEN: Soft, focal tenderness on palpation to the right lower quadrant with rebound but no guarding. Negative obturator sign. No pain in the right lower quadrant with palpation of the left lower quadrant. No upper abdominal tenderness. EXTREMITIES: Normal range of motion, no pitting or edema. No cyanosis. NEUROLOGICAL: No focal neurological deficits. Moves all extremities spontaneously and on command. PSYCH: Normal mood, normal affect. SKIN: Warm, Dry, normal turgor, no rashes or lesions noted. Course - Re-evaluation Re-evalutation: 10/26/17 19:54 Presentation is most concerning for possible acute appendicitis versus less likely an ovarian pathology although this remains elevated on the differential. I do not suspect an acute ovarian torsion or tubo-ovarian abscess, more likely a ovarian cyst rupture. However given my largest concern being a possible acute appendicitis a CT of the abdomen pelvis will be obtained to further evaluate. Although we do have some concern for acute appendicitis, given absence of fever, duration of her symptoms, I do have some doubt that this is the diagnosis. 10/26/17 22:00 CT abdomen pelvis does not visualize the appendix however there are no associated inflammatory findings around the area and this also suggest that the appendix is not significantly enlarged and or inflamed. On repeat assessment patient no longer has any focal abdominal pain to the area. There are pericecal lymph nodes which are enlarged and which would explain patient's pain as a mesenteric adenitis. I have explained the CT results the patient and have strongly encouraged her to return to the emergency department immediately should she have any new or worsening symptoms. She is agreeable to discharge. At this point given the CT not showing any findings suggestive of an acute appendicitis, no leukocytosis, no tachycardia or fever I think the overall likelihood of her having an acute appendicitis is quite low. - Vital Signs Vital signs: Temp Pulse Resp BP Pulse Ox 98.6 F 108 H 19 120/80 97 10/26/17 18:27 10/26/17 18:27 10/26/17 18:27 10/26/17 18:27 10/26/17 18:27 - Laboratory Result Diagrams: 10/26/17 20:15 10/26/17 20:15 Laboratory results interpreted by me: 10/26/17 10/26/17 18:54 20:15 RBC 5.29 H MCV 76 L MCH 25.4 L RDW 15.0 H Ur Leukocyte Esterase TRACE H - Diagnostic Test Radiology reviewed: Reports reviewed Discharge - Discharge Clinical Impression: Acute mesenteric adenitis, Right lower quadrant abdominal pain Condition: Good Disposition: HOME, SELF-CARE Instructions: Observation for Appendicitis ([facility]) Additional Instructions: You have been seen in the Emergency Department (ED) for abdominal pain. Your evaluation did not identify a clear cause of your symptoms but was generally reassuring. Your CT scan does not suggest appendicitis although as we have discussed we could not directly visualize the appendix. Therefore, it is very important she return to the emergency department immediately if you have worsening of your pain, develop a fever, persistent severe vomiting, or any other symptoms that are worrisome to you. Please follow-up with your primary care doctor for an abdominal recheck within the next 24 hours. He may take ibuprofen 600 mg every 6 hours as needed for discomfort. He may also apply heating pack to the area.
[2017-10-26 20:40] LABS: ABSOLUTE LYMPHOCYTES (AUTO) 2.5 10^3/uL (0.5-4.7); ABSOLUTE MONOCYTES (AUTO) 0.4 10^3/uL (0.1-1.4); ABSOLUTE NEUT (AUTO) 4.9 10^3/uL (1.7-8.2); BASOPHILS % (AUTO) 0.5 % (0-2); HEMATOCRIT 40.1 % (36.0-47.0); HEMOGLOBIN 13.4 g/dL (12.0-15.5); HGB HCT DIFFERENCE 0.1; LYMPHOCYTES % (AUTO) 32.2 % (13-45); MEAN CORPUSCULAR HEMOGLOBIN 25.4 pg (27.0-33.4); MEAN CORPUSCULAR HGB CONC 33.4 g/dL (32.0-36.0); MEAN CORPUSCULAR VOLUME 76 fl (80-97); MONOCYTES % (AUTO) 5.6 % (3-13); RED BLOOD COUNT 5.29 10^6/uL (3.72-5.28); SEGMENTED NEUTROPHILS % (AUTO) 61.7 % (42-78); WHITE BLOOD COUNT 7.9 10^3/uL (4.0-10.5)
[2017-10-26 21:06] LABS: ALANINE AMINOTRANSFERASE 45 U/L (9-52); ALBUMIN 4.7 g/dL (3.5-5.0); ALKALINE PHOSPHATASE 80 U/L (38-126); ANION GAP 16 (5-19); ASPARTATE AMINO TRANSFERASE 26 U/L (14-36); BILIRUBIN,DIRECT 0.4 mg/dL (0.0-0.4); BILIRUBIN,TOTAL 0.4 mg/dL (0.2-1.3); BLOOD UREA NITROGEN 11 mg/dL (7-20); CARBON DIOXIDE 25 mmol/L (22-30); CHLORIDE 103 mmol/L (98-107); CREATININE RESULT 0.88 mg/dL (0.52-1.25); GLUCOSE 92 mg/dL (75-110); POTASSIUM 4.1 mmol/L (3.6-5.0); SODIUM 143.9 mmol/L (137-145); TOTAL PROTEIN 7.9 g/dL (6.3-8.2)
--- NOTE | 2017-10-26 21:50 | RADIOLOGY REPORT (SQ) ---
EXAM DESCRIPTION: CT ABD/PELVIS WITH IV ONLY COMPLETED DATE/TIME: 10/26/2017 9:41 pm REASON FOR STUDY: RLQ PAIN COMPARISON: None. TECHNIQUE: CT scan of the abdomen and pelvis performed using helical scanning technique with dynamic intravenous contrast injection. No oral contrast. Images reviewed with lung, soft tissue, and bone windows. Reconstructed coronal and sagittal MPR images reviewed. Delayed images for evaluation of the urinary system also acquired. All images stored on PACS. All CT scanners at this facility use dose modulation, iterative reconstruction, and/or weight based d osing when appropriate to reduce radiation dose to as low as reasonably achievable (ALARA). [facility]: Dose Right [facility]: CareDose [facility]: Dose Right [facility]: Teradose 4D [facility]: JumpStart CONTRAST TYPE AND DOSE: 100 Isovue 370- low osmolar. RENAL FUNCTION: None required. The patient is less than 50 years old. RADIATION DOSE: . LIMITATIONS: None. FINDINGS: LOWER CHEST: No significant findings. No nodules or infiltrates. LIVER: Normal size. No masses. No dilated ducts. SPLEEN: Normal size. No focal lesions. PANCREAS: No masses. No significant calcifications. No adjacent inflammation or peripancreatic fluid collections. Pancreatic duct not dilated. GALLBLADDER: No identified stones by CT criteria. No inflammatory changes to suggest cholecystitis. ADRENAL GLANDS: No significant masses or asymmetry. RIGHT KIDNEY AND URETER: No solid masses. No significant calcifications. No hydronephrosis or hyd roureter. LEFT KIDNEY AND URETER: No solid masses. No significant calcifications. No hydronephrosis or hydr oureter. AORTA AND VESSELS: No aneurysm. No dissection. Renal arteries, SMA, celiac without stenosis. RETROPERITONEUM: No retroperitoneal adenopathy, hemorrhage or masses. BOWEL AND PERITONEAL CAVITY: No masses or inflammatory changes. No free fluid or peritoneal masses. Few small pericecal lymph nodes. APPENDIX: Not visualized. PELVIS: No mass. No free fluid. Normal bladder. ABDOMINAL WALL: No masses. No hernias. BONES: No significant or acute findings. OTHER: No other significant finding. IMPRESSION: Few small pericecal lymph nodes. Otherwise normal study. TECHNICAL DOCUMENTATION: JOB ID: [id number] Quality ID # [id number]: Final reports with documentation of one or more dose reduction techniques (e.g., Au tomated exposure control, adjustment of the mA and/or kV according to patient size, use of iterative reconstruction technique) 2010 [employer]- All Rights Reserved
== END 2017-10-26 22:30 | disposition home or self-care (01) ==
LOC: ER 18:20
DX: I88.0 Nonspecific mesenteric lymphadenitis (principal); R10.31 Right lower quadrant pain; R11.2 Nausea with vomiting, unspecified
CPT/HCPCS: 99284; 96361; 96374; 96375; 36415; 84703; 85025; 80053; 81001; 74177; J2270; J2405; J7030

== ENCOUNTER 2018-02-21 00:52 | Emergency (ER) | payer SELFPAY ==
--- NOTE | 2018-02-21 03:04 | ER Document Report ---
HPI - HPI Patient complains to provider of: sore throat, ear pain, cough Pain Level: 4 Context: Patient is a 27-year-old female comes emergency department for chief complaint of sore throat, pain in her sinuses, ear pain on the left side, and cough. She states the ear pain and the sore throat are new over the past 2 days, she has had a cough that is worse when she was to bed for about a month. She denies any fevers, shortness of breath, vomiting, headache. She denies smoking, she denies any daily medications. Currently on menstrual cycle. - CONSTITUTIONAL Constitutional: DENIES: Fever, Chills - EENT EENT: REPORTS: Sore Throat, Ear Pain - NEURO Neurology: REPORTS: Headache - RESPIRATORY Respiratory: REPORTS: Coughing - REPRODUCTIVE Reproductive: DENIES: : Past Medical History - General Information source: Patient - Social History Smoking Status: Never Smoker Chew tobacco use (# tins/day): No Frequency of alcohol use: None Drug Abuse: None Lives with: Family Family History: Reviewed & Not Pertinent, Other - Denies history of thromboembolic disorders. Patient has suicidal ideation: No Patient has homicidal ideation: No Renal/ Medical History: Denies: Hx Peritoneal Dialysis GI Medical History: Reports: Hx Gastroesophageal Reflux Disease Past Surgical History: Reports: Hx Section - Immunizations Hx Diphtheria, Pertussis, Tetanus Vaccination: Yes Vertical Provider Document - INFECTION CONTROL TRAVEL OUTSIDE OF THE [place] IN LAST 30 DAYS: No - HEENT HEENT: Atraumatic, Normocephalic. negative: Normal ENT Exam - Left serous effusion, otherwise normal tympanic membranes and ear exam. Mild erythema of the posterior pharynx with mild tonsillitis, no uvular edema or compromise of the airway. Tender maxillary and frontal sinuses (mild) - NECK Neck: Lymphadenopathy-Left, Lymphadenopathy-Right - RESPIRATORY Respiratory: Breath Sounds Normal, No Respiratory Distress, Other - Mild occasional cough - CARDIOVASCULAR Cardiovascular: Regular Rate, Regular Rhythm - GI/ABDOMEN Gastrointestinal: Abdomen Soft, Abdomen Non-Tender - MUSCULOSKELETAL/EXTREMETIES Musculoskeletal/Extremeties: MAEW, FROM, Non-Tender - NEURO Level of Consciousness: Awake, Alert, Appropriate Course - Re-evaluation Re-evalutation: Physical examination consistent with sinus infection, clear lungs, mild cough, no signs of respiratory distress. Mild anterior cervical adenopathy. Unremarkable examination otherwise. Strep is negative. Discussed with patient , patient will be treated with antibiotics for her sinus infection, discussed additional management, follow-up, return precautions, patient states understanding and agreement. - Vital Signs Vital signs: Temp Pulse Resp BP Pulse Ox 98.4 F 93 17 107/58 L 100 02/21/18 02:00 02/21/18 02:00 02/21/18 02:00 02/21/18 02:00 02/21/18 02:00 Discharge - Discharge Clinical Impression: Cough, Throat pain Sinusitis Qualifiers: Sinusitis location: unspecified location Chronicity: acute Recurrence: non- recurrent Qualified Code(s): J01.90 - Acute sinusitis, unspecified Ear pain Qualifiers: Laterality: left Qualified Code(s): H92.02 - Otalgia, left ear Condition: Stable Disposition: HOME, SELF-CARE Additional Instructions: Your workup shows negative strep test, however your examination is consistent with a sinus infection causing drainage, throat pain, cough, congestion. I recommend the doxycycline antibiotic as prescribed as discussed, you have been given dexamethasone tonight, medications including Flonase, Sudafed, and an anti -allergy medication like Debby [id number] can help a lot. Follow-up with primary care. Return to the emergency department for any concerning or worsening symptoms including difficulty breathing, spiking fever, etc. Prescriptions: Doxycycline Hyclate 100 mg PO BID #14 capsule
[2018-02-21] MEDS ORDERED: DEXAMETHASONE SOD PHOS INJ 10 MG/1 ML VIAL IM ONE (04:58)
[2018-02-21] MEDS ORDERED: DOXYCYCLINE HYCLATE 100 MG TABLET PO ONE (04:58)
[2018-02-21 05:07] VITALS: BP 121/70
== END 2018-02-21 05:06 | disposition home or self-care (01) ==
LOC: ER 00:52
DX: J01.90 Acute sinusitis, unspecified (principal); R07.0 Pain in throat; R05 Cough; H92.02 Otalgia, left ear; J02.9 Acute pharyngitis, unspecified; R51 Headache
CPT/HCPCS: 99283; 96372; 87070; 87880; J1100

== ENCOUNTER 2018-04-06 05:34 | Emergency (ER) | payer SELFPAY ==
[2018-04-06 06:07] LABS: ABSOLUTE BASOPHILS # (AUTO) 0.1 10^3/uL (0.0-0.2); ABSOLUTE LYMPHOCYTES (AUTO) 3.2 10^3/uL (0.5-4.7); ABSOLUTE MONOCYTES (AUTO) 0.7 10^3/uL (0.1-1.4); ABSOLUTE NEUT (AUTO) 5.8 10^3/uL (1.7-8.2); BASOPHILS % (AUTO) 0.6 % (0-2); HEMATOCRIT 39.6 % (36.0-47.0); HEMOGLOBIN 12.9 g/dL (12.0-15.5); LYMPHOCYTES % (AUTO) 32.2 % (13-45); MEAN CORPUSCULAR HEMOGLOBIN 24.9 pg (27.0-33.4); MEAN CORPUSCULAR HGB CONC 32.6 g/dL (32.0-36.0); MEAN CORPUSCULAR VOLUME 76 fl (80-97); MONOCYTES % (AUTO) 7.6 % (3-13); PLATELET COUNT 279 10^3/uL (150-450); RED BLOOD COUNT 5.19 10^6/uL (3.72-5.28); RED CELL DISTRIBUTION WIDTH 15.4 % (11.5-14.0); SEGMENTED NEUTROPHILS % (AUTO) 59.6 % (42-78); TOTAL CELLS COUNTED % (AUTO) 100 %; WHITE BLOOD COUNT 9.8 10^3/uL (4.0-10.5)
[2018-04-06 06:21] LABS: ALANINE AMINOTRANSFERASE 40 U/L (9-52); ALBUMIN 4.2 g/dL (3.5-5.0); ALKALINE PHOSPHATASE 64 U/L (38-126); ANION GAP 16 (5-19); ASPARTATE AMINO TRANSFERASE 28 U/L (14-36); BILIRUBIN,DIRECT 0.3 mg/dL (0.0-0.4); BILIRUBIN,TOTAL 0.3 mg/dL (0.2-1.3); BLOOD UREA NITROGEN 13 mg/dL (7-20); CALCIUM 9.2 mg/dL (8.4-10.2); CARBON DIOXIDE 22 mmol/L (22-30); CHLORIDE 106 mmol/L (98-107); GLUCOSE 116 mg/dL (75-110); POTASSIUM 3.6 mmol/L (3.6-5.0); SODIUM 143.8 mmol/L (137-145); TOTAL PROTEIN 7.4 g/dL (6.3-8.2)
[2018-04-06] MEDS ORDERED: DICYCLOMINE HCL INJ 20 MG/2 ML AMPULE IM ONE (07:15)
--- NOTE | 2018-04-06 07:16 | ER Document Report ---
ED General - General Chief Complaint: Unresponsive Stated Complaint: UNRESPONSIVE Time Seen by Provider: 04/06/18 06:12 Mode of Arrival: Medic Information source: Patient Notes: 27-year-old female who is been having diarrhea for past 2 days had a syncopal episode while on the toilet. Patient notes that her whole family has had diarrhea episodes, 2 of the daughters have been in the hospital seen for diarrhea as well, patient had an episode last week improved after 1 day and now has been ongoing for the past 2 days again. Patient has had 5 episodes of diarrhea while in the ED TRAVEL OUTSIDE OF THE [place] IN LAST 30 DAYS: No - HPI Onset: Last week Onset/Duration: Intermittent Quality of pain: Cramping Severity: Mild Pain Level: 1 Associated symptoms: Diarrhea, Weakness Exacerbated by: Denies Relieved by: Denies Similar symptoms previously: Yes Recently seen / treated by doctor: No - Related Data Allergies/Adverse Reactions: No Known Allergies Allergy (Verified 10/26/17 18:24) Past Medical History - Social History Smoking Status: Never Smoker Cigarette use (# per day): No Chew tobacco use (# tins/day): No Smoking Education Provided: No Frequency of alcohol use: None Drug Abuse: None Family History: Reviewed & Not Pertinent, Other - Denies history of thromboembolic disorders. Patient has suicidal ideation: No Patient has homicidal ideation: No Renal/ Medical History: Denies: Hx Peritoneal Dialysis GI Medical History: Reports: Hx Gastroesophageal Reflux Disease Past Surgical History: Reports: Hx Section - Immunizations Hx Diphtheria, Pertussis, Tetanus Vaccination: Yes Review of Systems - Review of Systems Notes: REVIEW OF SYSTEMS: CONSTITUTIONAL : Denies fever, chills, or sweats. Denies recent illness. EENT: Denies eye, ear, throat, or mouth pain or symptoms. Denies nasal or sinus congestion or discharge. Denies throat, tongue, or mouth swelling or difficulty swallowing. CARDIOVASCULAR: Denies chest pain. Denies palpitations or racing or irregular heart beat. Denies ankle edema. RESPIRATORY: Denies cough, cold, or chest congestion. Denies shortness of breath, difficulty breathing, or wheezing. GASTROINTESTINAL: Admits to diarrhea GENITOURINARY: Denies difficulty urinating, painful urination, burning, frequency, blood in urine, or discharge. FEMALE GENITOURINARY: Denies vaginal bleeding, heavy or abnormal periods, irregular periods. Denies vaginal discharge or odor. MUSCULOSKELETAL: Denies back or neck pain or stiffness. Denies joint pain or swelling. SKIN: Denies rash, lesions or sores. HEMATOLOGIC : Denies easy bruising or bleeding. LYMPHATIC: Denies swollen, enlarged glands. NEUROLOGICAL: Admits syncopal episode PSYCHIATRIC: Denies anxiety or stress. Denies depression, suicidal ideation, or homicidal ideation. ALL OTHER SYSTEMS REVIEWED AND NEGATIVE. PHYSICAL EXAMINATION: GENERAL: Well-appearing, well-nourished and in no acute distress. HEAD: Atraumatic, normocephalic. EYES: Pupils equal round and reactive to light, extraocular movements intact, conjunctiva are normal. ENT: Nares patent, oropharynx clear without exudates. Moist mucous membranes. NECK: Normal range of motion, supple without lymphadenopathy LUNGS: Breath sounds clear to auscultation bilaterally and equal. No wheezes rales or rhonchi. HEART: Regular rate and rhythm without murmurs ABDOMEN: Soft, generalized cramping no specific point tenderness Female : deferred Musculoskeletal: Normal range of motion, no pitting or edema. No cyanosis. NEUROLOGICAL: Cranial nerves grossly intact. Normal speech, normal gait. Normal sensory, motor exams PSYCH: Normal mood, normal affect. SKIN: Warm, Dry, normal turgor, no rashes or lesions noted. Dictation was performed using [employer] voice recognition software Physical Exam - Vital signs Vitals: Pulse Ox 99 04/06/18 05:39 Course - Re-evaluation Re-evalutation: 04/06/18 07:16 Patient's presentation is most consistent with a vagal episode occurred while she was using the restroom, patient will be tested for C. difficile ova and parasite 04/06/18 14:10 Patient was given IV fluids, blood work noted no significant abnormality, she appears quite well and was resting comfortably, she will be discharged home as she is otherwise stable After performing a Medical Screening Examination, I estimate there is LOW risk for INTRACRANIAL HEMORRHAGE, ISCHEMIC CVA, MALIGNANT DYSRHYTHMIA, ACUTE CORONARY SYNDROME, MENINGITIS, PULMONARY EMBOLISM, or SEPSIS thus I consider the discharge disposition reasonable. I have reevaluated this patient multiple times and no significant life threatening changes are noted. The patient and I have discussed the diagnosis and risks, and we agree with discharging home with close follow-up with the understanding that symptoms and presentations can change. We also discussed returning to the Emergency Department immediately if new or worsening symptoms occur. We have discussed the symptoms which are most concerning (e.g., changing or worsening pain, weakness, vomiting, fever) that necessitate immediate return. - Vital Signs Vital signs: Temp Pulse Resp BP Pulse Ox 98.1 F 17 101/60 100 04/06/18 07:00 04/06/18 09:01 04/06/18 09:01 04/06/18 09:01 - Laboratory Result Diagrams: 04/06/18 05:56 04/06/18 05:56 Laboratory results interpreted by me: 04/06/18 04/06/18 05:56 05:56 MCV 76 L MCH 24.9 L RDW 15.4 H Glucose 116 H Discharge - Discharge Clinical Impression: Nausea vomiting and diarrhea, Vasovagal syncope Condition: Stable Disposition: HOME, SELF-CARE Instructions: Syncopal Episode ([facility]) Additional Instructions: Follow up with your physician tomorrow for further care or return to the ED IMMEDIATELY if symptoms worsen or new concerns occur. If you cannot afford to follow up with your primary care physician a list of low cost clinics have been provided at the end of your discharge papers as well. Prescriptions: Dicyclomine HCl [Bentyl 20 mg Tablet] 20 mg PO QID #40 tablet Metoclopramide HCl [Reglan 10 mg Tablet] 1 - 2 tab PO Q6 #25 tablet
[2018-04-06] MEDS: NORMAL SALINE 1000 ML 1,000 ML IV PRN ×2 (07:31→07:43)
[2018-04-06] MEDS ORDERED: METOCLOPRAMIDE HCL INJ/PF 10 MG/2 ML SDV IV ONE (07:34)
--- NOTE | 2018-04-06 07:48 | EKG REPORT ---
SEVERITY:- NORMAL ECG - SINUS RHYTHM : Confirmed by: Michel Lyles MD 06-Apr-2018 07:47:41
[2018-04-06 08:14] LABS: APPEARANCE,URINE CLEAR; BILIRUBIN,URINE NEGATIVE (NEGATIVE); COLOR,URINE YELLOW; GLUCOSE, URINE NEGATIVE (NEGATIVE); KETONES,URINE NEGATIVE (NEGATIVE); LEUKOCYTE ESTERASE,URINE NEGATIVE (NEGATIVE); NITRITE,URINE NEGATIVE (NEGATIVE); PROTEIN,URINE NEGATIVE (NEGATIVE); URINE SPECIFIC GRAVITY 1.008; UROBILINOGEN,URINE NEGATIVE mg/dL (<2.0)
[2018-04-06 09:10] VITALS: BP 101/60
== END 2018-04-06 09:16 | disposition home or self-care (01) ==
LOC: ER 05:34
DX: R55 Syncope and collapse (principal); R11.2 Nausea with vomiting, unspecified; R19.7 Diarrhea, unspecified; R10.84 Generalized abdominal pain; R53.1 Weakness; Z87.19 Personal history of other diseases of the digestive system
CPT/HCPCS: 93005; 99285; 96372; 96361; 96374; 36415; 87045; 87205; 87209; 87177; 85025; 81025; 80053; 81001; 87493; 93010; J0500; J2765; J7030

== ENCOUNTER 2018-07-31 21:49 | Emergency (ER) | payer SELFPAY ==
--- NOTE | 2018-08-01 02:33 | ER Document Report ---
ED General - General Chief Complaint: Congestion Stated Complaint: COLD SYMPTOMS Time Seen by Provider: 08/01/18 01:45 Mode of Arrival: Ambulatory Information source: Patient Notes: 28-year-old female presents to the emergency room with sinus congestion, chills , fever, postnasal drip and maxillary sinus tenderness. TRAVEL OUTSIDE OF THE [place] IN LAST 30 DAYS: No - HPI Onset: Last week Onset/Duration: Gradual Quality of pain: No pain Severity: None Pain Level: Denies Associated symptoms: Chills, Fever, Other - Sinus congestion. denies: Shortness of breath Exacerbated by: Denies Relieved by: Denies Similar symptoms previously: No Recently seen / treated by doctor: No - Related Data Allergies/Adverse Reactions: No Known Allergies Allergy (Verified 10/26/17 18:24) Past Medical History - General Information source: Patient - Social History Smoking Status: Never Smoker Cigarette use (# per day): No Chew tobacco use (# tins/day): No Frequency of alcohol use: None Drug Abuse: None Lives with: Family Family History: Reviewed & Not Pertinent, Other - Denies history of thromboembolic disorders. Patient has suicidal ideation: No Patient has homicidal ideation: No - Past Medical History Cardiac Medical History: Reports: None Pulmonary Medical History: Reports: None EENT Medical History: Reports: None Neurological Medical History: Reports: None Endocrine Medical History: Reports: None Renal/ Medical History: Reports: None. Denies: Hx Peritoneal Dialysis Malignancy Medical History: Reports: None GI Medical History: Reports: Hx Gastroesophageal Reflux Disease Past Surgical History: Reports: Hx Section - Immunizations Hx Diphtheria, Pertussis, Tetanus Vaccination: Yes Review of Systems - Review of Systems Constitutional: denies: Chills, Fever EENT: Sinus pressure, Sinus discharge Cardiovascular: No symptoms reported Respiratory: No symptoms reported Gastrointestinal: No symptoms reported Genitourinary: No symptoms reported Female Genitourinary: No symptoms reported Musculoskeletal: No symptoms reported Skin: No symptoms reported Hematologic/Lymphatic: No symptoms reported Neurological/Psychological: No symptoms reported Physical Exam - Vital signs Vitals: Temp Pulse Resp BP Pulse Ox 98.1 F 114 H 20 132/81 H 95 07/31/18 22:07 07/31/18 22:07 07/31/18 22:07 07/31/18 22:07 07/31/18 22:07 Notes: Physical exam: GENERAL: 8-year-old female, alert and oriented 3, appears congested, vital signs stable HEAD: Atraumatic, normocephalic. EYES: Pupils equal round and reactive to light, extraocular movements intact, sclera anicteric, conjunctiva are normal. ENT: TMs normal, oropharynx clear without exudates. Moist mucous membranes. Does have maxillary sinus tenderness to palpation. NECK: Normal range of motion, supple without obvious mass. LUNGS: Breath sounds clear to auscultation bilaterally and equal. No wheezes rales or rhonchi. HEART: Regular rate and rhythm without murmurs, rubs or gallops. ABDOMEN: Soft, normoactive bowel sounds. No tenderness to palpation. No guarding, no rebound. No masses appreciated. EXTREMITIES: Normal range of motion, no pitting or edema. No clubbing or cyanosis. NEUROLOGICAL: Cranial nerves II through XII grossly intact. Normal speech, moving all extremities. PSYCH: Normal mood, normal affect. SKIN: Warm, Dry, normal turgor, no rashes or lesions noted. Course - Re-evaluation Re-evalutation: 08/01/18 02:32 Note: Patient's presenting with acute sinusitis but has had symptoms for only 3 days. I did discuss with her that antibiotics are not given until after 10 days worth of symptoms. She does not have good access to a primary care physician (no healthcare coverage) and cannot simply come back here if worse or if symptoms persist. Therefore I will give her prescription and tell her only take it if her symptoms are greater than 10 days. 08/01/18 03:12 Rapid strep negative - Vital Signs Vital signs: Temp Pulse Resp BP Pulse Ox 98.1 F 114 H 20 132/81 H 95 07/31/18 22:07 07/31/18 22:07 07/31/18 22:07 07/31/18 22:07 07/31/18 22:07 Discharge - Discharge Clinical Impression: Sinusitis Condition: Stable Disposition: HOME, SELF-CARE Additional Instructions: As we discussed, the current government recommendations for acute sinusitis for patient's over 18 years old and is an antibiotic only if the symptoms are greater for 10 days. I will give you a prescription so that you have it if you have continued symptoms. The prescription is for amoxicillin (current recommendations are for amoxicillin or Augmentin, the amoxicillin will be cheaper). In addition, I recommend using nasal saline (you could try "simply saline" sold in pharmacies): [place] both nostrils while in the shower each day. You can also try Mucinex which will loosen up the secretions to allow the sinuses to drain. Ultimately, the sinuses will heal faster if they can drain. I would avoid medicines that will dry up your secretions (many [id number] preparations). Follow-up with a primary care doctor: I [facility] the [facility] of the [facility]. Prescriptions: Amoxicillin Trihydrate [Amoxil 875 mg Tablet] 1 tab PO BID #20 tablet
[2018-08-01 04:36] VITALS: BP 123/74
== END 2018-08-01 02:53 | disposition home or self-care (01) ==
LOC: ER 21:49
DX: J32.9 Chronic sinusitis, unspecified (principal)
CPT/HCPCS: 87070; 87880; 99283

== ENCOUNTER 2018-11-13 20:56 | Emergency (ER) | payer SELFPAY ==
[2018-11-13] MEDS ORDERED: IPRATROPIUM/ALBUTEROL 0.5-2.5 MG/3 ML AMPUL NEB ONE ×2 (22:44→23:26)
[2018-11-13] MEDS ORDERED: PREDNISONE 20 MG TABLET PO ONE (22:44)
--- NOTE | 2018-11-13 22:47 | ER Document Report ---
ED General - General Chief Complaint: Cough Stated Complaint: COUGH Time Seen by Provider: 11/13/18 22:41 Notes: Patient is a 28-year-old female presents to the emergency department complaining of a consistent cough for the last 2 weeks. Patient states initially she did have some nasal discharge and a sore throat but that has since resolved. States the cough has been consistent and at times she feels short of breath and like it is hard to take a deep breath. Patient denies any chest pain, abdominal pain, nausea, vomiting, fever, dysuria. Patient states she does have a history of childhood asthma and used albuterol when she was little. Past medical history: Asthma Medications: None Allergies: None Patient states she recently got her wisdom teeth pulled. States she is currently taking penicillin, oxycodone, Motrin. TRAVEL OUTSIDE OF THE [place] IN LAST 30 DAYS: No - Related Data Allergies/Adverse Reactions: No Known Allergies Allergy (Verified 10/26/17 18:24) Past Medical History - General Information source: Patient - Social History Smoking Status: Never Smoker Family History: Reviewed & Not Pertinent, Other - Denies history of thromboembolic disorders. Renal/ Medical History: Denies: Hx Peritoneal Dialysis GI Medical History: Reports: Hx Gastroesophageal Reflux Disease Past Surgical History: Reports: Hx Section - Immunizations Hx Diphtheria, Pertussis, Tetanus Vaccination: Yes Review of Systems - Review of Systems Constitutional: See HPI EENT: See HPI Cardiovascular: See HPI Respiratory: See HPI Gastrointestinal: See HPI Genitourinary: See HPI Female Genitourinary: No symptoms reported Musculoskeletal: See HPI Skin: No symptoms reported Hematologic/Lymphatic: No symptoms reported Neurological/Psychological: No symptoms reported Physical Exam - Vital signs Vitals: Temp Pulse Resp BP Pulse Ox 98.6 F 92 17 117/77 96 11/13/18 21:06 11/13/18 21:06 11/13/18 21:06 11/13/18 21:06 11/13/18 21:06 - Notes Notes: GENERAL: Alert, interacts well. No acute distress. HEAD: Normocephalic, atraumatic. No frontal or maxillary sinus tenderness EYES: Pupils equal, round, and reactive to light. Extraocular movements intact. ENT: Oral mucosa moist, tongue midline. Nares patent, TM's intact, nonerythematous, nonbulging pharynx within normal limits, no palatal petechiae or exudate noted tonsils +2 bilaterally NECK: Full range of motion. Supple. Trachea midline. No lymphadenopathy appreciated LUNGS: Expiratory wheeze heard all lung blackwell, no rales, or rhonchi. No respiratory distress, patient able to speak in full sentences 96% on room air. HEART: Regular rate and rhythm. No murmur ABDOMEN: Obese soft, non-tender. Non-distended. Bowel sounds present in all 4 quadrants. EXTREMITIES: Moves all 4 extremities spontaneously. No edema, normal radial and dorsalis pedis pulses bilaterally. No cyanosis. BACK: no cervical, thoracic, lumbar midline tenderness. No saddle anesthesia, normal distal neurovascular exam. NEUROLOGICAL: Alert and oriented x3. Normal speech. cranial nerves II through XII grossly intact PSYCH: Normal affect, normal mood. SKIN: Warm, dry, normal turgor. No rashes or lesions noted. Course - Re-evaluation Re-evalutation: 11/13/18 23:26 On reexamination of patient's lung sounds she is now noted to have inspiratory and expiratory wheezes right upper and lower lung blackwell. Still only expiratory wheezes noted on the left upper and lower lung blackwell. Patient states no change in her respiratory distress after initial breathing treatment. Another DuoNeb ordered, Awaiting results of the chest x-ray. 11/14/18 00:08 After a total of 9 mL of DuoNeb patient states she feels a lot better. She still has an end expiratory wheeze more so noted on the right lower base. Discussed with patient home use of albuterol treatments. Patient states she would like one more treatment in the emergency room because she does not feel like she can 100% take a deep breath. Discussed with he 1 more albuterol treatment in the emergency room at home user her inhaler. Also going to prescribe her home steroids. 11/14/18 00:10 Chest x-ray shows no signs of pneumonia, pneumothorax, rib fractures. After last albuterol in the emergency room patient's lung sounds are now clear and equal in all blackwell. Patient states she feels "100% better." Close return precautions discussed. - Vital Signs Vital signs: Temp Pulse Resp BP Pulse Ox 98.6 F 92 17 117/77 96 11/13/18 21:06 11/13/18 21:06 11/13/18 21:06 11/13/18 21:06 11/13/18 21:06 Discharge - Discharge Clinical Impression: Bronchospasm Upper respiratory infection Qualifiers: URI type: unspecified URI Qualified Code(s): J06.9 - Acute upper respiratory infection, unspecified Condition: Stable Disposition: HOME, SELF-CARE Instructions: Bronchospasm ([facility]), Upper Respiratory Illness ([facility]) Additional Instructions: As we discussed you have been seen and treated in the emergency department for an upper respiratory infection and wheezing. You should take medications as prescribed. Your chest x-ray showed no signs of pneumonia. His follow-up with your primary care provider in the next 24-48 hours. Please return to the emergency room for any other concerning symptoms. Prescriptions: Albuterol Sulfate [Proair HFA Inhalation Aerosol 8.5 gm MDI] 2 puff IH Q4H PRN # 1 mdi PRN Reason: Prednisone [Deltasone 20 mg Tablet] 3 tab PO DAILY 5 Days tablet
--- NOTE | 2018-11-13 23:06 | RADIOLOGY REPORT (SQ) ---
EXAM DESCRIPTION: XR CHEST 2 VIEWS COMPLETED DATE/TME: 11/13/2018 22:45 CLINICAL HISTORY: 28 years, Female, sob Compared to 10/10/2017. FINDINGS: The heart is not enlarged. Lungs are clear. No consolidation or pleural effusion. No pulmonary edema or pneumothorax. IMPRESSION: No acute disease.
[2018-11-14] MEDS ORDERED: ALBUTEROL SULFATE 0.083% NEB 2.5 MG/3 ML AMPUL NEB ONE (00:09)
[2018-11-14] MEDS ORDERED: ALBUTEROL SULFATE HFA (90 MCG/PUFF) 8 GM MDI (1 MDI/ER DISP) IH ONE (00:09)
[2018-11-14 00:39] VITALS: BP 117/73
== END 2018-11-14 00:39 | disposition home or self-care (01) ==
LOC: ER 20:56
DX: J06.9 Acute upper respiratory infection, unspecified (principal); J98.01 Acute bronchospasm
CPT/HCPCS: 94640 ×2; 99283; 71046; J7512; J3490; J7620

== ENCOUNTER 2019-05-19 12:50 | Emergency (ER) | payer MEDICAID ==
[2019-05-19] MEDS ORDERED: NORMAL SALINE 1000 ML 1,000 ML IV ONE (13:14)
[2019-05-19] MEDS ORDERED: ONDANSETRON HCL INJ/PF 4 MG/2 ML SDV IV ONE (13:14)
--- NOTE | 2019-05-19 13:16 | ER Document Report ---
Addendum entered and electronically signed by SHANNON TREVINO PA-C 05/19/19 14:43: Discharge - Discharge Clinical Impression: Nausea and vomiting Qualifiers: Vomiting type: unspecified Vomiting Intractability: non-intractable Qualified Code(s): R11.2 - Nausea with vomiting, unspecified Condition: Stable Disposition: HOME, SELF-CARE Instructions: Antinausea Medication ([facility]), Vomiting ([facility]) Additional Instructions: Maintain adequate fluid and food intake [place] diet (B.R.A.T.) Bananas, rice, apples, toast, etc Zofran as needed tylenol if needed Monitor for any worsening symptoms Make sure you are staying hydrated enough to urinate and have normal BM's Recheck with your PCM in 2-3 days Consider consult with Gastroenterology for ongoing/worsening symptoms Return to the ED with any worsening symptoms and/or development of fever, headache, chest pain, palpitations, syncope, shortness of breath, trouble breathing, abdominal pain, n/v/d, blood in stool/urine, weakness, or other worsening symptoms that are concerning to you. Prescriptions: Omeprazole 20 mg PO DAILY #30 tablet. Ondansetron [Zofran Odt 4 mg Tablet] 1 - 2 tab PO Q4H PRN #15 tab.rapdis PRN Reason: For Nausea/Vomiting Sucralfate [Carafate] 1 gm PO BID #100 ml Referrals: EVIE ABERNATHY MD [ACTIVE STAFF] - Follow up as needed Original Note: HPI - HPI Pain Level: 3 Notes: Patient is a 28-year-old female no significant past medical history aside from surgical history of who presents complaining of nausea, vomiting, and watery diarrhea that began yesterday. Patient states that she is trying to eat and drink, but does have a decreased p.o. intake. She is urinating normally. Patient states that she just finished her menstrual cycle recently. She has no other concerns or complaints. No concern of pain. Denies drug allergies. Patient states that there is an illness circulating the household with similar symptoms. Denies any headache, fever, neck pain, URI, sore throat, chest pain, palpitations, syncope, cough, shortness of breath, wheeze, dyspnea, abdominal pain, urinary retention, dysuria, hematuria, back pain, or rash. - ROS Systems Reviewed and Negative: Yes All other systems reviewed and negative - REPRODUCTIVE Reproductive: DENIES: : - DERM Skin Color: Normal Past Medical History - Social History Smoking Status: Never Smoker Chew tobacco use (# tins/day): No Frequency of alcohol use: None Drug Abuse: None Family History: Reviewed & Not Pertinent, Other - Denies history of thromboembolic disorders. Patient has suicidal ideation: No Patient has homicidal ideation: No Renal/ Medical History: Denies: Hx Peritoneal Dialysis GI Medical History: Reports: Hx Gastroesophageal Reflux Disease Past Surgical History: Reports: Hx Section - Immunizations Hx Diphtheria, Pertussis, Tetanus Vaccination: Yes Vertical Provider Document - CONSTITUTIONAL Agree With Documented VS: Yes Notes: PHYSICAL EXAMINATION: GENERAL: Well-appearing, well-nourished and in no acute distress. HEAD: Atraumatic, normocephalic. EYES: Pupils equal round and reactive to light, extraocular movements intact, sclera anicteric, conjunctiva are normal. ENT: Nares patent and without discharge. oropharynx clear without exudates. No tonsilar hypertrophy or erythema. Moist mucous membranes. NECK: Normal range of motion, supple without lymphadenopathy LUNGS: Breath sounds clear to auscultation bilaterally and equal. No wheezes rales or rhonchi. HEART: Regular rate and rhythm without murmurs, rubs, gallops. ABDOMEN: Soft, nontender, nondistended abdomen. No guarding, no rebound. Normal bowel sounds present. No CVA tenderness bilaterally. Hyatt negative. No tenderness at [place]. Musculoskeletal: FROM to passive/active. Strength 5+/5. Extremities: No cyanosis, clubbing, or edema b/l. Peripheral pulses 2+. Capillary refill less than 3 seconds. NEUROLOGICAL: Normal speech, normal gait. Normal sensory, motor exams PSYCH: Normal mood, normal affect. SKIN: Warm, Dry, normal turgor, no rashes or lesions noted. - INFECTION CONTROL TRAVEL OUTSIDE OF THE [place] IN LAST 30 DAYS: No Course - Re-evaluation Re-evalutation: 05/19/19 14:36 Patient is an afebrile, well-hydrated, 28-year-old female who presents with nausea and vomiting which I suspect to be viral. Vitals are acceptable without significant tachycardia, tachypnea, or hypoxia. PE is otherwise unremarkable. Patient's abdomen is soft nontender. Patient is nontoxic-appearing is able to tolerate p.o. without difficulty. CBC, CMP, lipase, urinalysis, hCG unremarkable. Patient was given fluids as well as Zofran. She has not had any episodes of emesis throughout her stay. No further work-up warranted. Low susp icion/risk for acute appendicitis, bowel obstruction, acute cholecystitis, acute cholangitis, perforated diverticulitis, incarcerated hernia, pancreatitis, perforated ulcer, peritonitis, sepsis, pelvic inflammatory disease, ectopic , tubo-ovarian abscess, ovarian torsion, or other systemic emergent condition at this time. Patient is aware that her condition can change from initial presentation and she needs to monitor symptoms closely and seek medical attention if any acute changes. Conservative measures otherwise for symptoms. Recheck with your PCM in 2-3 days. Consider consult with a rail filler. Return to the ED with any worsening/concerning symptoms otherwise as reviewed in discharge. Patient is in agreement. - Vital Signs Vital signs: Temp Pulse Resp BP Pulse Ox 98.6 F 101 H 18 125/74 97 05/19/19 12:59 05/19/19 12:59 05/19/19 12:59 05/19/19 12:59 05/19/19 12:59 - Laboratory Result Diagrams: 05/19/19 13:39 05/19/19 13:39 Discharge - Discharge Clinical Impression: Nausea and vomiting Qualifiers: Vomiting type: unspecified Vomiting Intractability: non-intractable Qualified Code(s): R11.2 - Nausea with vomiting, unspecified Condition: Stable Disposition: HOME, SELF-CARE Instructions: Vomiting ([facility]), Antinausea Medication ([facility]) Additional Instructions: Maintain adequate fluid and food intake [place] diet (B.R.A.T.) Bananas, rice, apples, toast, etc Zofran as needed tylenol if needed Monitor for any worsening symptoms Make sure you are staying hydrated enough to urinate and have normal BM's Recheck with your PCM in 2-3 days Consider consult with Gastroenterology for ongoing/worsening symptoms Return to the ED with any worsening symptoms and/or development of fever, headache, chest pain, palpitations, syncope, shortness of breath, trouble breathing, abdominal pain, n/v/d, blood in stool/urine, weakness, or other worsening symptoms that are concerning to you. Prescriptions: Ondansetron [Zofran Odt 4 mg Tablet] 1 - 2 tab PO Q4H PRN #15 tab.rapdis PRN Reason: For Nausea/Vomiting Referrals: EVIE ABERNATHY MD [ACTIVE STAFF] - Follow up as needed
[2019-05-19 13:53] LABS: ABSOLUTE LYMPHOCYTES (AUTO) 1.4 10^3/uL (0.5-4.7); ABSOLUTE MONOCYTES (AUTO) 0.3 10^3/uL (0.1-1.4); ABSOLUTE NEUT (AUTO) 4.8 10^3/uL (1.7-8.2); BASOPHILS % (AUTO) 0.5 % (0-2); HEMOGLOBIN 12.7 g/dL (12.0-15.5); MEAN CORPUSCULAR HEMOGLOBIN 23.8 pg (27.0-33.4); MEAN CORPUSCULAR HGB CONC 32.6 g/dL (32.0-36.0); MEAN CORPUSCULAR VOLUME 73 fl (80-97); MONOCYTES % (AUTO) 5.1 % (3-13); PLATELET COUNT 290 10^3/uL (150-450); RED BLOOD COUNT 5.33 10^6/uL (3.72-5.28); RED CELL DISTRIBUTION WIDTH 15.9 % (11.5-14.0); SEGMENTED NEUTROPHILS % (AUTO) 73.4 % (42-78); TOTAL CELLS COUNTED % (AUTO) 100 %; WHITE BLOOD COUNT 6.6 10^3/uL (4.0-10.5)
[2019-05-19 13:55] LABS: APPEARANCE,URINE SLIGHTLY-CLOUDY; BILIRUBIN,URINE NEGATIVE (NEGATIVE); COLOR,URINE STRAW; GLUCOSE, URINE NEGATIVE (NEGATIVE); KETONES,URINE NEGATIVE (NEGATIVE); LEUKOCYTE ESTERASE,URINE NEGATIVE (NEGATIVE); NITRITE,URINE NEGATIVE (NEGATIVE); PROTEIN,URINE NEGATIVE (NEGATIVE); URINE SPECIFIC GRAVITY 1.005; UROBILINOGEN,URINE NEGATIVE mg/dL (<2.0)
[2019-05-19 14:10] LABS: ALANINE AMINOTRANSFERASE 54 U/L (9-52); ALBUMIN 4.6 g/dL (3.5-5.0); ALKALINE PHOSPHATASE 78 U/L (38-126); ANION GAP 9 (5-19); ASPARTATE AMINO TRANSFERASE 41 U/L (14-36); BILIRUBIN,DIRECT 0.2 mg/dL (0.0-0.4); BILIRUBIN,TOTAL 0.6 mg/dL (0.2-1.3); BLOOD UREA NITROGEN 10 mg/dL (7-20); CALCIUM 9.4 mg/dL (8.4-10.2); CARBON DIOXIDE 28 mmol/L (22-30); CHLORIDE 104 mmol/L (98-107); GLUCOSE 95 mg/dL (75-110); LIPASE 61.8 U/L (23-300); POTASSIUM 4.1 mmol/L (3.6-5.0); SODIUM 140.5 mmol/L (137-145); TOTAL PROTEIN 7.6 g/dL (6.3-8.2)
[2019-05-19 15:03] VITALS: BP 121/70
== END 2019-05-19 15:03 | disposition home or self-care (01) ==
LOC: ER 12:50
DX: R11.2 Nausea with vomiting, unspecified (principal); R19.7 Diarrhea, unspecified; R63.0 Anorexia
CPT/HCPCS: 99284; 96361; 96374; 36415; 83690; 85025; 81025; 80053; 81001; J2405; J7030

== ENCOUNTER 2019-11-24 22:39 | Emergency (ER) | payer SELFPAY ==
[2019-11-24] MEDS ORDERED: BENZONATATE 100 MG CAPSULE PO ONE (23:32)
--- NOTE | 2019-11-25 00:08 | RADIOLOGY REPORT (SQ) ---
EXAM DESCRIPTION: XR CHEST 2 VIEWS COMPLETED DATE/TME: 11/24/2019 23:32 CLINICAL HISTORY: 29 years, Female, cough COMPARISON: 11/13/2018 chest NUMBER OF VIEWS: 2 TECHNIQUE: 2 views of the chest LIMITATIONS: None. FINDINGS: Heart size normal. Lungs clear. No pneumothorax IMPRESSION: Negative chest copyright 2010 [employer]- All Rights Reserved
[2019-11-25 00:22] LABS: A TYPE INFLUENZA AG NEGATIVE (NEGATIVE); B INFLUENZA AG NEGATIVE (NEGATIVE)
--- NOTE | 2019-11-25 02:47 | ER Document Report ---
HPI - HPI Patient complains to provider of: Cold symptoms Time Seen by Provider: 11/24/19 23:28 Onset: Last week Onset/Duration: Gradual, Worse Quality of pain: Achy Severity: Moderate Pain Level: 3 Context: 29-year-old female presented to ED for cough cold congestion sore throat for 5 days. She states she is been using [id number] medications with no relief. She denies any fevers at home. She states she has been using Mucinex with some help but is not completely clearing it up. She states she does get short of breath at times. She denies getting a flu shot this year. She states her last menstrual period was 2 days ago. Patient is alert oriented respirations regular nonlabored speaking in full sentences walks with even steady gait. Associated Symptoms: Nonproductive cough, Rhinnorhea, Sinus pain/drainage, Sore throat Exacerbated by: Coughing Relieved by: Denies Similar symptoms previously: Yes Recently seen / treated by doctor: No - ROS ROS below otherwise negative: Yes - CONSTITUTIONAL Constitutional: DENIES: Fever, Chills - EENT EENT: REPORTS: Sore Throat, Nasal Drainage-Purulent. DENIES: Ear Pain, Nasal Drainage-Clear, Congestion, Eye problems - NEURO Neurology: REPORTS: Headache. DENIES: Weakness, Vision blurred, Dizzinesss / Vertigo - CARDIOVASCULAR Cardiovascular: DENIES: Chest pain - RESPIRATORY Respiratory: REPORTS: Coughing. DENIES: Trouble Breathing - GASTROINTESTINAL Gastrointestinal: DENIES: Abdominal Pain, Nausea, Patient vomiting, Diarrhea, Constipation, Black / Bloody Stools - URINARY Urinary: DENIES: Dysuria, Urgency, Frequency - REPRODUCTIVE Reproductive: DENIES: :, Postmenopausal, Abnormal bleeding / discharge - MUSCULOSKELETAL Musculoskeletal: DENIES: Extremity pain, Back Pain, Neck Pain, Swelling - DERM Skin Color: Normal Skin Problems: None Past Medical History - General Information source: Patient - Social History Smoking Status: Never Smoker Chew tobacco use (# tins/day): No Frequency of alcohol use: None Drug Abuse: None Family History: Reviewed & Not Pertinent, Other - Denies history of thromboembolic disorders. Patient has suicidal ideation: No Patient has homicidal ideation: No - Past Medical History Cardiac Medical History: Reports: None Pulmonary Medical History: Reports: Hx Bronchitis EENT Medical History: Reports: None Neurological Medical History: Reports: None Endocrine Medical History: Reports: None Renal/ Medical History: Reports: None GI Medical History: Reports: Hx Gastroesophageal Reflux Disease Musculoskeletal Medical History: Reports None Skin Medical History: Reports None Psychiatric Medical History: Reports: None Traumatic Medical History: Reports: None Infectious Medical History: Reports: None Past Surgical History: Reports: Hx Section - Immunizations Hx Diphtheria, Pertussis, Tetanus Vaccination: Yes Vertical Provider Document - CONSTITUTIONAL Agree With Documented VS: Yes Exam Limitations: No Limitations General Appearance: WD/WN, No Apparent Distress - INFECTION CONTROL TRAVEL OUTSIDE OF THE [place] IN LAST 30 DAYS: No - HEENT HEENT: Atraumatic, Normocephalic, PERRLA Notes: Patient has purulent nasal drainage with postnasal drip. Flu and strep are negative. Chest x-ray is negative. - NECK Neck: Normal Inspection - RESPIRATORY Respiratory: Breath Sounds Normal, No Respiratory Distress, Chest Non-Tender - CARDIOVASCULAR Cardiovascular: Regular Rate - Heart rate is 104. Patient states this is normal for her, Regular Rhythm, No Murmur - GI/ABDOMEN Gastrointestinal: Abdomen Soft, Abdomen Non-Tender, No Organomegaly, Normal Bowel Sounds - MUSCULOSKELETAL/EXTREMETIES Musculoskeletal/Extremeties: MAEW, FROM, Non-Tender - NEURO Level of Consciousness: Awake, Alert, Appropriate Motor/Sensory: No Motor Deficit, No Sensory Deficit, No Pronator Drift Deep Tendon Reflexes: 2+ - DERM Integumentary: Warm, Dry, No Rash Course - Re-evaluation Re-evalutation: 11/25/19 02:50 After performing a Medical Screening Examination, I estimate there is LOW risk for ACUTE CORONARY SYNDROME, RESPIRATORY FAILURE, SEPSIS OR MENINGITIS, thus I consider the discharge disposition reasonable. I have reevaluated this patient multiple times and no significant life threatening changes are noted. The patient and I have discussed the diagnosis and risks, and we agree with discharging home with close follow-up. We also discussed returning to the Emergency Department immediately if new or worsening symptoms occur. We have discussed the symptoms which are most concerning (e.g., changing or worsening p ain, trouble swallowing or breathing, neck stiffness, fever) that necessitate immediate return. - Vital Signs Vital signs: Temp Pulse Resp BP Pulse Ox 98.8 F 125 H 18 140/91 H 98 11/24/19 22:44 11/24/19 22:44 11/24/19 22:44 11/24/19 22:44 11/24/19 22:44 Discharge - Discharge Clinical Impression: URI (upper respiratory infection) Qualifiers: URI type: unspecified viral URI Qualified Code(s): J06.9 - Acute upper res piratory infection, unspecified Disposition: HOME, SELF-CARE Additional Instructions: UPPER RESPIRATORY ILLNESS: You have a viral infection of the respiratory passages -- a "cold." This common infection causes nasal congestion, drainage, and often sore throat and cough. It is highly contagious. The disease usually lasts about 10 to 14 days. There is no "cure" for the viral infection -- it must run its course. If there is a complication, such as bacterial infection in the nose, sinuses, middle ear, or bronchial tubes, antibiotics may be required. The antibiotics won't affect the virus. Drink plenty of fluids. A humidifier may help. An expectorant medication or decongestant may make you more comfortable. Use acetaminophen or ibuprofen for fever or aches. See the doctor if fever persists over two days, if there is any significant worsening of your symptoms, or if you simply fail to improve as expected. COUGH-SUPPRESSANT & EXPECTORANT MEDICATION: You are to use a cough medication as needed for relief of symptoms. This medicine is a combination of an expectorant (to make the mucous thinner and more easily "coughed up") and a cough suppressant (to reduce the frequency of coughing). The cough-suppressant medicine is related to narcotics. You may experience mild nausea and sleepiness. Some patients who are very sensitive to narcotics may have stomach pain from this medicine. Taking the medicine with food reduces these side effects. Do not drive or work with machinery until you know how this medicine affects you. The expectorant should have no side effects. Iodine-containing expectorants (such as organidin) should not be taken by persons with active thyroid disease unless approved by your doctor. Call the doctor if you develop shortness of breath, hives, rash, itching, lightheadedness, or severe nausea and vomiting. USE OF ACETAMINOPHEN (Tylenol): Acetaminophen may be taken for pain relief or fever control. It's much safer than aspirin, offering a wider range of "safe" dosages. It is safe during . Some brand names are Tylenol, Panadol, Datril, Anacin 3, Tempra, and Liquiprin. Acetaminophen can be repeated every four hours. The following are maximum recommended dosages: >89 pounds or adults 650 mg to 900 mg Acetaminophen can be repeated every four hours. Maximum dose not to exceed 4000 mg a day. Rcul-wbx-ssasnin cold medications include Zyrtec or Claritin. You have been using Mucinex. Normally I would suggest Sudafed but she states it makes your heart race so I would not advise you taking Sudafed. You could also use Flonase which is [id number]-[id number] 1 spray each nostril twice a day. You could also use salt soda solution gargles. These will help to remove the drainage from the back your throat. Chloraseptic spray was phup-fom-syxrhkn that will also help with your sore throat. Salt and soda solution gargle 1 quart of water 1 tablespoon of salt 1 teaspoon of baking soda Mixed 3 ingredients together and boil for 1 minute Placed in a covered quart jar Use 1/2 ounce of cold solution to gargle 3 times a day FOLLOW-UP CARE: If you have been referred to a physician for follow-up care, call the physicians office for an appointment as you were instructed or within the next two days. If you experience worsening or a significant change in your symptoms, notify the physician immediately or return to the Emergency Department at any time for re-evaluation. Forms: Elevated Blood Pressure Referrals: [facility] [Provider Group] - Follow up as needed [facility] [Provider Group] - Follow up as needed [facility] [Provider Group] - Follow up as needed [facility] [Provider Group] - Follow up as needed [facility] [Provider Group] - Follow up as needed
[2019-11-25 03:04] VITALS: BP 123/78
== END 2019-11-25 03:03 | disposition home or self-care (01) ==
LOC: ER 22:39
DX: J06.9 Acute upper respiratory infection, unspecified (principal)
CPT/HCPCS: 71046; 87070; 87804; 87880; 99283